=== PATIENT | male | born 1995 | race Two or more races ===

== ENCOUNTER 2016-11-13 04:34 | Emergency (ER) | payer OTHER ==
[~2016-11-13] VITALS: Ht 188 cm; Wt 115.7 kg
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
[2016-11-13 04:49] VITALS: BP 110/52
== END 2016-11-13 04:49 ==
LOC: EDBD 04:34 → EMR 04:40
DX: F10.129 Alcohol abuse with intoxication, unspecified (principal)
CPT/HCPCS: 99283